=== PATIENT | male | born 1945 | race Caucasian/White ===

== ENCOUNTER 2016-10-27 15:43 | Emergency (ER) | payer MEDICARE, OTHER ==
[~2016-10-27] VITALS: Ht 167.6 cm; Wt 75.0 kg
[~2016-10-27 15:43] MED LIST: ASPIRIN EC81 MG PO; BUSPAR5 MG PO; CLARITIN10 M1 PO; MULTI FOR HIM PO; PRILOSEC20 MG/CAP PO; PROVENTIL HFA IN; TESSALON PER100 MG PO; ZPAK PO; [UNRECOGNIZED DRUG - OTHER]; statin drug PO
[2016-10-27] MEDS ORDERED: GENTAMICIN15 ML/BTL OD (16:38)
[2016-10-27] MEDS ORDERED: (None)3.5 GM OD (16:38)
[2016-10-27 16:40] VITALS: BP 140/86
== END 2016-10-27 16:46 | disposition home or self-care (01) ==
LOC: ED 15:43
DX: S05.01XA Injury of conjunctiva and corneal abrasion without foreign body, right eye, initial encounter (principal); I10 Essential (primary) hypertension; K21.9 Gastro-esophageal reflux disease without esophagitis; J44.9 Chronic obstructive pulmonary disease, unspecified; F32.9 Major depressive disorder, single episode, unspecified; W22.8XXA Striking against or struck by other objects, initial encounter; Y93.H9 Activity, other involving exterior property and land maintenance, building and construction; Y92.007 Garden or yard of unspecified non-institutional (private) residence as the place of occurrence of the external cause

== ENCOUNTER 2021-10-18 18:51 | Emergency (ER) | payer OTHER, MEDICARE ==
[~2021-10-18] VITALS: Ht 167.6 cm; Wt 68.0 kg
[2021-10-18] VITALS (8 sets, daily range): BP systolic 95–116; BP diastolic 50–70
[~2021-10-18 18:51] MED LIST changes: +(None)3.5 GM OD; +GENTAMICIN15 ML/BTL OD
[2021-10-18 19:41] LABS: HEMATOCRIT 40.6 % (39.0-50.0); HEMOGLOBIN 13.4 g/dl (14.0-18.0); IMMATURE GRANULOCYTES 0.2 % (0.0-5.0); MEAN CORPUSCULAR HGB 33.1 pG CALC (26.0-32.0); NEUT# 4.71 thou/uL (1.82-7.42); RED BLOOD COUNT 4.05 mill/uL (4.70-6.10); RED CELL DISTRI WIDTH 12.4 % (11.5-15.5)
[2021-10-18 19:43] LABS: MEAN CELL VOLUME 100.2 fL CALC (80.0-100.0)
[2021-10-18 19:57] LABS: ACT PARTIAL THROMBO TIME 33.6 SECONDS (20.0-32.5); PROTHROMBIN TIME 10.6 SECONDS (9.0-12.5)
[2021-10-18 20:07] LABS: D-DIMER 0.85 mg/L (0.19-0.60)
[2021-10-18] MEDS ORDERED: TAMSULOSIN HCL0.4 MG PO (20:49)
[2021-10-18] MEDS ORDERED: LIPITOR10 M1 PO (20:50)
[2021-10-18] MEDS ORDERED: ONE A DAY MENS1 CHW (20:51)
[2021-10-18] MEDS ORDERED: NIACINAMIDE500 MG PO (20:51)
[2021-10-18] MEDS ORDERED: ACETAMIN500 M2 PO (20:53)
[2021-10-18] MEDS ORDERED: CYCLOBENZAPRINE10 MG PO (20:54)
[2021-10-18] MEDS ORDERED: GABAPENTIN100 MG PO (20:54)
[2021-10-18] MEDS ORDERED: DELSYM30 MG/5 ML PO (20:56)
[2021-10-18 22:15] LABS: ALBUMIN 3.6 g/dL (3.2-5.0); BILIRUBIN, TOTAL 0.5 mg/dL (0.0-1.4); CREATININE 1.9 mg/dL (0.7-1.3); POTASSIUM 4.1 mmol/l (3.5-5.1); TOTAL PROTEIN 6.7 g/dL (6.3-8.2)
[2021-10-18] MEDS ORDERED: TRAMADOL HCL50 MG PO (22:33)
[2021-10-18] MEDS ORDERED: TAM75CAP PO (22:33)
== END 2021-10-18 22:40 | disposition home or self-care (01) | DRG 195 ==
LOC: ED 18:51
PROVIDERS: Family Medicine
DX: J10.1 Influenza due to other identified influenza virus with other respiratory manifestations (principal); M47.816 Spondylosis without myelopathy or radiculopathy, lumbar region; I12.9 Hypertensive chronic kidney disease with stage 1 through stage 4 chronic kidney disease, or unspecified chronic kidney disease; N18.30 Chronic kidney disease, stage 3 unspecified; J44.9 Chronic obstructive pulmonary disease, unspecified; F32.A Depression, unspecified; N40.0 Benign prostatic hyperplasia without lower urinary tract symptoms